=== PATIENT | female | born 1990 | race Two or more races ===

== ENCOUNTER → 2017-11-21 14:30 | Outpatient (CLI) | payer OTHER, SELFPAY ==
--- NOTE | 2017-11-21 14:30 | DT_ITS ---
This patient was seen during an EMR downtime November 19, 2017 - November 26, 2017. This patient may have a combination of paper and electronic documentation or all paper documentation. All documentation is viewable within the e-chart portion of [facility] for each patient visit.
[2017-12-02 10:37] LABS: HPV Reflexed? NOT INDICATED
== END ==
PROVIDERS: Visit Provider Obstetrics & Gynecology
DX: Z12.4 Encounter for screening for malignant neoplasm of cervix (principal)
CPT/HCPCS: 88175; A4216; G0145

== ENCOUNTER → 2018-11-26 08:55 | Outpatient (CLI) | payer OTHER, SELFPAY ==
[2018-11-26 16:30] LABS: Chlamydia Trachomatis by PCR Negative (Negative); Neisserai gonorrhoeae by PCR Negative (Negative); Probe Check PASS; Sample Adequacy Control PASS; Specimen Processing Control PASS
[2018-11-28 10:07] LABS: HPV Reflexed? NOT INDICATED
== END ==
PROVIDERS: Visit Provider Obstetrics & Gynecology
DX: Z12.4 Encounter for screening for malignant neoplasm of cervix (principal); Z11.3 Encounter for screening for infections with a predominantly sexual mode of transmission
CPT/HCPCS: 87491; 87591; 88175; G0145